=== PATIENT | female | born 1975 | race Caucasian/White ===

== ENCOUNTER 2018-02-16 15:25 | Emergency (ER) | payer OTHER ==
[2018-02-16 16:10] LABS: Absolute Lymphocytes (CBC) 2.5 K/uL (0.7-4.9); Absolute Monocytes 0.6 K/uL (0.1-1.3); Absolute Neutrophil 7.7 K/uL (1.8-8.0); Basophils % 0.7 % (0-1.3); Eosinophils % 0.8 % (0-4.4); Hematocrit 41.5 % (36.0-45.0); MCH 30.5 pg (27.0-35.0); MCV 91.6 fL (80-100); Monocytes % 5.6 % (3.3-12.3); RBC Red Blood Cell Count 4.53 M/uL (3.86-4.86)
--- NOTE | 2018-02-16 16:10 | RAD REPORT ---
EXAM DESCRIPTION: [facility] Single View02/16/2018 4:04 pm CLINICAL HISTORY: Chest pain COMPARISON: none FINDINGS: The lungs appear clear of acute infiltrate. The heart is normal size IMPRESSION: No acute abnormalities displayed
[2018-02-16 16:14] LABS: Protime INR 1.01
[2018-02-16 16:20] LABS: Potassium 3.6 mEq/L (3.6-5.0)
[2018-02-16 16:26] LABS: Albumin 4.6 g/dL (3.2-5.5); Bilirubin Direct 0.1 mg/dL (0-0.2); Bilirubin Total 0.5 mg/dL (0.3-1.2); Magnesium 1.9 mg/dL (1.8-2.5); Protein, Total 7.7 g/dL (6.0-8.3)
[2018-02-16 16:29] LABS: CKMB Creatine Kinase MB 1.2 ng/ml (0.3-4.0)
[2018-02-16 16:30] LABS: Urine Blood TRACE (NEG); Urine Glucose NEGATIVE (NEG); Urine Protein NEGATIVE (NEG); Urine Specific Gravity 1.015 (1.005-1.030)
[2018-02-16] MEDS ORDERED: ASPIRIN 81 MG CHEWABLE TABLET ONE (16:33)
[2018-02-16] MEDS ORDERED: NA CHLORIDE 0.9% 1,000 ML ONE (16:33)
--- NOTE | 2018-02-16 16:39 | EKG ---
Test Date: 2018-02-16 Test Time: 15:44:36 Assistant Strength Coach: GREGORY MEASUREMENT RESULTS: Intervals: Rate: 73 ME: 134 QRSD: 78 QT: 378 QTc: 416 [place]: P: 49 ME: 134 QRS: 73 T: 73 INTERPRETIVE STATEMENTS: Normal sinus rhythm Normal ECG Compared to ECG 05/02/2010 07:00:21 No significant changes Electronically Signed On 02-16-18 16:39:01 CDT by Ramos Pena
--- NOTE | 2018-02-16 17:46 | RAD REPORT ---
EXAM DESCRIPTION: CT - Angio Aorta For Dissection - 02/16/2018 5:30 pm CLINICAL HISTORY: Chest pain radiating to the back. COMPARISON: None. TECHNIQUE: CT angiography of the aorta was performed with volume rendering. All CT scans are performed using dose optimization technique as appropriate and may include automated exposure control or mA/KV adjustment according to patient size. FINDINGS: A left aortic arch is present with bovine configuration of the great vessels.No acute aort ic finding is seen such as aneurysm, penetrating ulcer or dissection. The celiac axis demonstrates m oderate narrowing proximally. The SMA, AMAN and renal arteries are widely patent. No evidence of pulmonary embolism. The lungs are clear. The liver demonstrates no focal mass or biliary dilatation.The spleen, pancreas, adrenal glands and k idneys are within normal limits for arterial phase imaging. No bowel obstruction, free fluid or abscess.No pathologic enlarged lymphadenopathy identified. No fracture or worrisome bone lesion seen. 5.2 cm rounded low-density lesion in the pelvis is probably an ovarian cyst. IMPRESSION: No acute aortic finding is demonstrated. Suspected 5.2 cm ovarian cyst. This can be further assessed with pelvic sonography if clinically chris cated.
--- NOTE | 2018-02-16 17:50 | EDPHYS ---
Physician Documentation [facility] Name: Candelaria Groves Age: 42 yrs Sex: Female : 1975 Arrival Date: 02/16/2018 Time: 15:28 Bed 6 Private MD: ED Physician Charles Perla HPI: 02/16 17:17 This 42 yrs old Female presents to ER via Ambulatory with complaints of Chest layne Pain. 17:17 The patient or guardian reports chest pain that is located primarily in the substernal layne area. Onset: 2 day(s) ago. The pain radiates to Associated signs and symptoms: The patient has no apparent associated signs or symptoms. Severity of pain: At its worst the pain was mild in the emergency department the pain is unchanged. The patient has not experienced similar symptoms in the past. 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 - Family history:: not pertinent. - Social history:: Smoking status: unknown. ROS: 17:17 Constitutional: Negative for fever, chills, and weight loss, Eyes: Negative for injury, layne pain, redness, and discharge, ENT: Negative for injury, pain, and discharge, Neck: Negative for injury, pain, and swelling, Cardiovascular: Negative for chest pain, palpitations, and edema, Respiratory: Negative for shortness of breath, cough, wheezing, and pleuritic chest pain, Abdomen/GI: Negative for abdominal pain, nausea, vomiting, diarrhea, and constipation, Back: Negative for injury and pain, : Negative for injury, bleeding, discharge, and swelling, MS/Extremity: Negative for injury and deformity, Skin: Negative for injury, rash, and discoloration, Neuro: Negative for headache, weakness, numbness, tingling, and seizure. Exam: 17:19 Constitutional: This is a well developed, well nourished patient who is awake, alert, layne and in no acute distress. Head/Face: Normocephalic, atraumatic. Eyes: Pupils equal round and reactive to light, extra-ocular motions intact. Lids and lashes normal. Conjunctiva and sclera are non-icteric and not injected. Cornea within normal limits. Periorbital areas with no swelling, redness, or edema. ENT: Nares patent. No nasal discharge, no septal abnormalities noted. Tympanic membranes are normal and external auditory canals are clear. Oropharynx with no redness, swelling, or masses, exudates, or evidence of obstruction, uvula midline. Mucous membranes moist. Neck: Trachea midline, no thyromegaly or masses palpated, and no cervical lymphadenopathy. Supple, full range of motion without nuchal rigidity, or vertebral point tenderness. No Meningismus. Chest/axilla: Normal chest wall appearance and motion. Nontender with no deformity. No lesions are appreciated. Cardiovascular: Regular rate and rhythm with a normal S1 and S2. No gallops, murmurs, or rubs. Normal PMI, no JVD. No pulse deficits. Respiratory: Lungs have equal breath sounds bilaterally, clear to auscultation and percussion. No rales, rhonchi or wheezes noted. No increased work of breathing, no retractions or nasal flaring. Abdomen/GI: Soft, non-tender, with normal bowel sounds. No distension or tympany. No guarding or rebound. No evidence of tenderness throughout. Back: No spinal tenderness. No costovertebral tenderness. Full range of motion. Skin: Warm, dry with normal turgor. Normal color with no rashes, no lesions, and no evidence of cellulitis. MS/ Extremity: Pulses equal, no cyanosis. Neurovascular intact. Full, normal range of motion. Neuro: Awake and alert, GCS 15, oriented to person, place, time, and situation. Cranial nerves II-XII grossly intact. Motor strength 5/5 in all extremities. Sensory grossly intact. Cerebellar exam normal. Normal gait. Psych: Awake, alert, with orientation to person, place and time. Behavior, mood, and affect are within normal limits. 17:19 Musculoskeletal/extremity: DVT Exam: No signs of deep vein thrombosis. no pain, no swelling, no tenderness, negative Homans' sign noted on exam, no appreciated bluish discoloration, no erythema, no increased warmth. Vital Signs: 15:38 BP 108 / 76; Pulse 93; Resp 18; Temp 98.4(TE); Pulse Ox 98% on R/A; Weight 58.97 kg; hj Height 5 ft. 6 in. (167.64 cm); Pain 2/10; 16:09 BP 128 / 78; Pulse 66; Resp 16 S; Pulse Ox 99% on R/A; jl7 17:00 BP 111 / 77; Pulse 66; Resp 16 S; Pulse Ox 100% on R/A; jl7 17:22 BP 119 / 71; Pulse 77; Resp 16 S; Pulse Ox 100% on R/A; jl7 18:00 BP 117 / 70; Pulse 75; Resp 16 S; Pulse Ox 100% on R/A; jl7 15:38 Body Mass Index 20.98 (58.97 kg, 167.64 cm) hj MDM: 15:48 Patient medically screened. [facility] 17:31 Data reviewed: vital signs, nurses notes, lab test result(s), EKG, radiologic studies, [facility] CT scan, plain films. 02/16 15:49 Order name: Basic Metabolic Panel [facility] 02/16 15:49 Order name: BNP; Complete Time: 17:15 [facility] 02/16 15:49 Order name: CBC with Diff; Complete Time: 17:15 [facility] 02/16 15:49 Order name: Ckmb; Complete Time: 17:15 [facility] 02/16 15:49 Order name: CPK; Complete Time: 17:15 [facility] 02/16 15:49 Order name: LFT's; Complete Time: 17:15 [facility] 02/16 15:49 Order name: Magnesium; Complete Time: 17:15 [facility] 02/16 15:49 Order name: PT-INR; Complete Time: 17:15 [facility] 02/16 15:49 Order name: Ptt, Activated; Complete Time: 17:15 [facility] 02/16 15:49 Order name: Troponin (emerg Dept Use Only); Complete Time: 17:15 [facility] 02/16 15:49 Order name: D-Dimer; Complete Time: 17:15 [facility] 02/16 15:49 Order name: Basic Metabolic Panel [facility] 02/16 15:49 Order name: BNP [facility] 02/16 15:49 Order name: CBC with Diff [facility] 02/16 15:49 Order name: Ckmb [facility] 02/16 15:49 Order name: CPK [facility] 02/16 15:49 Order name: LFT's [facility] 02/16 15:49 Order name: Magnesium [facility] 02/16 15:49 Order name: PT-INR 02/16 15:49 Order name: Ptt, Activated 7 02/16 15:49 Order name: Troponin (emerg Dept Use Only) 02/16 15:49 Order name: XRAY Chest (1 view); Complete Time: 17:15 jl7 02/16 15:49 Order name: Basic Metabolic Panel; Complete Time: 17:15 EDMS 02/16 16:18 Order name: Urine Dipstick--Ancillary (enter results); Complete Time: 17:15 ag 02/16 16:18 Order name: Urine --Ancillary (enter results); Complete Time: 17:15 ag 02/16 17:17 Order name: CT Aorta for Dissection; Complete Time: 17:47 layne 02/16 15:49 Order name: Urine Test (obtain specimen); Complete Time: 16:16 layne 02/16 15:49 Order name: EKG; Complete Time: 15:49 layne 02/16 15:49 Order name: Cardiac monitoring; Complete Time: 16:04 layne 02/16 15:49 Order name: EKG - Nurse/Tech; Complete Time: 16:05 layne 02/16 15:49 Order name: IV Saline Lock; Complete Time: 16:05 layne 02/16 15:49 Order name: Labs collected and sent; Complete Time: 16:05 layne 02/16 15:49 Order name: O2 Per Protocol; Complete Time: 16:05 layne 02/16 15:49 Order name: O2 Sat Monitoring; Complete Time: 16:05 layne 02/16 15:49 Order name: Urine Dipstick-Ancillary (obtain specimen); Complete Time: 16:05 layne 02/16 15:49 Order name: Cardiac monitoring; Complete Time: 16:03 jl7 02/16 15:49 Order name: EKG - Nurse/Tech; Complete Time: 15:52 jl7 02/16 15:49 Order name: IV Saline Lock; Complete Time: 16:04 jl7 02/16 15:49 Order name: Labs collected and sent; Complete Time: 16:04 jl7 02/16 15:49 Order name: O2 Per Protocol; Complete Time: 16:04 jl7 02/16 15:49 Order name: O2 Sat Monitoring; Complete Time: 16:04 jl7 02/16 15:49 Order name: Urine Dipstick-Ancillary (obtain specimen); Complete Time: 16:04 Administered Medications: 16:16 Drug: Aspirin 81 mg Route: PO; 18:10 Follow up: Response: No adverse reaction 16:16 Drug: NS 0.9% 1000 ml Route: IV; Rate: 125 ml/hr; Site: right antecubital; 7 18:11 Follow up: IV Status: Completed infusion; IV converted to saline lock; IV Intake: 200ml 18:09 Drug: ToPROL XL 25 mg Route: PO; 18:09 Follow up: Response: Medication administered at discharge. 18:09 Drug: Pepcid 20 mg {Note: administered PO.} Route: IVP; Site: Other; 18:10 Follow up: Response: Medication administered at discharge. [facility] Disposition: 02/16/18 17:50 Discharged to Home. Impression: Other chest pain. - Condition is Stable. - Discharge Instructions: Nonspecific Chest Pain, [id number], Aspirin and Your Heart. - Prescriptions for Toprol XL 25 mg Oral Tablet - take 1 tablet by ORAL route once daily; 20 tablet. Pepcid 20 mg Oral Tablet - take 1 tablet by ORAL route every 12 hours for 10 days; 20 tablet. - Medication Reconciliation Form, Thank You Letter, Antibiotic Education, Prescription Opioid Use form. - Follow up: Private Physician; When: 2 - 3 days; Reason: Recheck today's complaints, Continuance of care, Re-evaluation by your physician. Follow up: Logan Ritter MD; When: 2 - 3 days; Reason: Recheck today's complaints, Continuance of care, Re-evaluation by your physician. - Problem is new. - Symptoms have improved. Signatures: Dispatcher [employer] EDCharles Cooper MD MD cha Joaquin, Henry, RN RN Pippa Rosales RN RN jl7 Corrections: (The following items were deleted from the chart) 15:38 15:37 PSHx: None; aleshia monk 15:55 15:49 Chest Single View+RAD.RAD.BRZ ordered. EDMS EDMS
--- NOTE | 2018-02-16 17:50 | ER ---
Nurse's Notes [facility] Name: Candelaria Groves Age: 42 yrs Sex: Female : 1975 Arrival Date: 02/16/2018 Time: 15:28 Bed 6 Private MD: Diagnosis: Other chest pain Presentation: 02/16 15:35 Presenting complaint: Patient states: i have this chest pain that comes and go for a hj month, today i had chest pressure from my chest that moves to the back, went to the clinic at work and they told me to go to the ER: denies nausea and vomiting;. Transition of care: patient was not received from another setting of care. Onset of symptoms was February 16, 2018. Care prior to arrival: None. 15:35 Method Of Arrival: Ambulatory 15:35 Acuity: NICOLETTE 3 hj Triage Assessment: 15:38 General: Appears in no apparent distress. uncomfortable, Behavior is calm, cooperative, hj appropriate for age. Pain: Complains of pain in chest. Cardiovascular: Capillary refill < 3 seconds Patient's skin is warm and dry. 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 - Family history:: not pertinent. - Social history:: Smoking status: unknown. Screenin:09 Abuse screen: Denies threats or abuse. Denies injuries from another. Nutritional jl7 screening: No deficits noted. Tuberculosis screening: No symptoms or risk factors identified. Fall Risk IV access (20 points). Total Krause Fall Scale indicates No Risk (0-24 pts). Assessment: 15:40 Pain: Pain radiates to back Pain began a month. hj 15:50 General: Appears in no apparent distress. uncomfortable, Behavior is calm, cooperative, jl7 appropriate for age. Pain: Complains of pain in anterior aspect of left upper chest Pain radiates to back Pain currently is 0 out of 10 on a pain scale. at worst was 2 out of 10 on a pain scale. Quality of pain is described as pressure, squeezing, Pain began 1 month ago Is intermittent. Neuro: Level of Consciousness is awake, alert, obeys commands, Oriented to person, place, time, situation, Moves all extremities. Cardiovascular: Heart tones S1 S2 present Patient's skin is warm and dry. Respiratory: Airway is patent Respiratory effort is even, unlabored, Respiratory pattern is regular, symmetrical, Breath sounds are clear bilaterally. GI: Patient currently denies diarrhea, nausea, vomiting. : No signs and/or symptoms were reported regarding the genitourinary system. EENT: No signs and/or symptoms were reported regarding the EENT system. Derm: Skin is pink, warm \T\ dry. Musculoskeletal: Range of motion: intact in all extremities. 17:00 Reassessment: No changes from previously documented assessment. Patient and/or family jl7 updated on plan of care and expected duration. Pain level reassessed. Patient is alert, oriented x 3, equal unlabored respirations, skin warm/dry/pink. 17:50 Reassessment: Dr. Perla at bedside discussing plan of care. jl7 Vital Signs: 15:38 BP 108 / 76; Pulse 93; Resp 18; Temp 98.4(TE); Pulse Ox 98% on R/A; Weight 58.97 kg; hj Height 5 ft. 6 in. (167.64 cm); Pain 2/10; 16:09 BP 128 / 78; Pulse 66; Resp 16 S; Pulse Ox 99% on R/A; jl7 17:00 BP 111 / 77; Pulse 66; Resp 16 S; Pulse Ox 100% on R/A; jl7 17:22 BP 119 / 71; Pulse 77; Resp 16 S; Pulse Ox 100% on R/A; jl7 18:00 BP 117 / 70; Pulse 75; Resp 16 S; Pulse Ox 100% on R/A; jl7 15:38 Body Mass Index 20.98 (58.97 kg, 167.64 cm) ED Course: 15:28 Patient arrived in ED. rg4 15:37 Triage completed. hj 15:38 Arm band placed on right wrist. hj 15:40 network mgr on. Pulse ox on. NIBP on. hj 15:40 Patient maintains SpO2 saturation greater than 95% on room air. 15:47 Charles Perla MD is Attending Physician. [facility] 15:48 Pippa Weir RN is Primary Nurse. jl7 15:56 EKG done, by neon technician. reviewed by Charles Perla MD. at1 16:02 X-ray completed. Portable x-ray completed in exam room. Patient tolerated procedure kc2 well. 16:03 XRAY Chest (1 view) In Process Unspecified. EDMS 16:09 Patient has correct armband on for positive identification. Placed in gown. Bed in low jl7 position. Call light in reach. Side rails up X 1. Warm blanket given. 16:09 Initial lab(s) drawn, by me, sent to lab. Inserted saline lock: 20 gauge in right jl7 antecubital area, using aseptic technique. Blood collected. 17:[address] jj2 17:30 CT Aorta for Dissection In Process Unspecified. EDMS 17:49 Logan Ritter MD is Referral Physician. [facility] 18:12 No provider procedures requiring assistance completed. IV discontinued, intact, jl7 bleeding controlled, No redness/swelling at site. Pressure dressing applied. Administered Medications: 16:16 Drug: Aspirin 81 mg Route: PO; jl7 18:10 Follow up: Response: No adverse reaction jl7 16:16 Drug: NS 0.9% 1000 ml Route: IV; Rate: 125 ml/hr; Site: right antecubital; jl7 18:11 Follow up: IV Status: Completed infusion; IV converted to saline lock; IV Intake: 200ml jl7 18:09 Drug: ToPROL XL 25 mg Route: PO; jl7 18:09 Follow up: Response: Medication administered at discharge. jl7 18:09 Drug: Pepcid 20 mg {Note: administered PO.} Route: IVP; Site: Other; jl7 18:10 Follow up: Response: Medication administered at discharge. jl7 Intake: 18:11 IV: 200ml; Total: 200ml. jl7 Outcome: 17:50 Discharge ordered by . layne 18:12 Discharged to home ambulatory. jl7 18:12 Condition: stable 18:12 Discharge instructions given to patient, Instructed on discharge instructions, follow up and referral plans. medication usage, Demonstrated understanding of instructions, follow-up care, medications, Prescriptions given X 2. 18:13 Patient left the ED. jl7 Signatures: Dispatcher [employer] EDIA Charles Perla MD MD cha Jaramillo, Justin jj2 Renée harrison, yarn packer EKG Tat1 Jose Mendoza RN RN Pamella Coy2 Deyanira Leach rg4 Pippa Weir RN RN jl7 Corrections: (The following items were deleted from the chart) 15:38 15:37 PSHx: None; aleshia monk
[2018-02-16] MEDS ORDERED: METOPROLOL XL 50 MG TAB PO ONE (18:26)
[2018-02-16] MEDS ORDERED: FAMOTIDINE 20 MG TAB ONE (18:28)
== END 2018-02-16 18:13 | disposition home or self-care (01) ==
LOC: ER 15:25
DX: R07.89 Other chest pain (principal)
CPT/HCPCS: 36415; 71045; 71275; 74175; 80048; 80076; 81003; 81025; 82550; 82553; 83735; 83880; 84484; 85025; 85379; 85610; 85730; 93005; 96361; 96374; 99285; J7030; Q9967